=== PATIENT | female | born 1930 | race Caucasian/White ===

== ENCOUNTER 2017-07-24 18:03 | Emergency (ER) | payer MEDICARE ==
[2017-07-24 18:44] VITALS: BP 151/99
--- NOTE | 2017-07-24 19:15 | ED ---
Skin Complaint - HPI Summary HPI Summary: 87 yr old female with the complaint of tick on right anterior chest. Present for two days. The patient has noticed significant redness of about 2.5 inch diameter. No other complaints. No engorgement of tick. - History of Current Complaint Chief Complaint: UCSkin Time Seen by Provider: 07/24/17 19:00 Stated Complaint: TICK Hx Last Menstrual Period: N/A Pain Intensity: 0 - Allergy/Home Medications Allergies/Adverse Reactions: Allergies Allergy/AdvReac Type Severity Reaction Status Date / Time aspirin Allergy Severe swelling Verified 07/24/17 18:45 of face/lips/throat Home Medications: Home Medications Cephalexin CAP* [Keflex CAP*] 500 mg PO TID 07/24/17 [History Confirmed 07/24/17 ] Levothyroxine TAB* [Synthroid TAB*] 25 mcg PO 0800 07/24/17 [History Confirmed 07/24/17] PMH/Surg Hx/FS Hx/Imm Hx Previously Healthy: Yes Endocrine/Hematology History: Denies: Hx Diabetes, Hx Thyroid Disease Cardiovascular History: Reports: Hx Hypertension - taken off medication by PCP Respiratory History: Reports: Hx Asthma Denies: Hx Chronic Obstructive Pulmonary Disease (COPD) GI History: Denies: Hx Ulcer - Surgical History Surgery Procedure, Year, and Place: ablation. pacemaker Infectious Disease History: No Infectious Disease History: Denies: Traveled Outside the [place] in Last 30 Days - Family History Known Family History: Positive: None - Social History Occupation: Retired Lives: With Family Alcohol Use: Daily Alcohol Amount: 1 glass of wine Substance Use Type: Reports: None Smoking Status (MU): Former Smoker Review of Systems Constitutional: Negative Eyes: Negative Positive: Other - tick right anterior chest All Other Systems Reviewed And Are Negative: Yes Physical Exam Triage Information Reviewed: Yes Vital Signs On Initial Exam: Initial Vitals Temp Pulse Resp BP Pulse Ox 98.3 F 75 18 151/99 95 07/24/17 18:36 07/24/17 18:36 07/24/17 18:36 07/24/17 18:36 07/24/17 18:36 Vital Signs Reviewed: Yes Appearance: Positive: Well-Appearing, No Pain Distress Skin: Positive: Other - tick right anterior chest with 2.5 inch diameter or redness. Head/Face: Positive: Normal Head/Face Inspection Eyes: Positive: EOMI Neck: Positive: Nontender Respiratory/Lung Sounds: Positive: Clear to Auscultation, Breath Sounds Present Cardiovascular: Positive: RRR. Negative: Murmur Abdomen Description: Positive: Nontender. Negative: Distended Neurological: Positive: Sensory/Motor Intact, Alert, Oriented to Person Place, Time, CN Intact II-III Psychiatric: Positive: Normal - Reshma Coma Scale Best Eye Response: 4 - Spontaneous Best Motor Response: 6 - Obeys Commands Best Verbal Response: 5 - Oriented Coma Scale Total: 15 Diagnostics - Vital Signs Vital Signs Temp Pulse Resp BP Pulse Ox 07/24/17 18:36 98.3 F 75 18 151/99 95 - Laboratory Lab Statement: Any lab studies that have been ordered have been reviewed, and results considered in the medical decision making process. Course/Dx - Course Course Of Treatment: 87 yr old female with the complaint of tick. Tick removed. Rx with doxy 10 days due to the redness that is larger than just a localized reaction. - Diagnoses Provider Diagnoses: Tick bite of chest wall, Hypertension Discharge - Sign-Out/Discharge Documenting (check all that apply): Discharge/Admit/Transfer - Discharge Plan Condition: Good Disposition: HOME Prescriptions: DOXYcycline CAP(*) [DOXYcycline 100MG CAP(*)] 100 mg PO BID #20 cap Patient Education Materials: Lyme Disease (ED), Tick Bite (ED), Hypertension ( ED) Referrals: Cindy THOMPSON,Amos Proctor [Primary Care Provider] - 2 Days - Billing Disposition and Condition Condition: GOOD Disposition: HOME
== END 2017-07-24 19:17 | disposition home or self-care (01) ==
LOC: UCCORT 18:03
DX: S20.361A Insect bite (nonvenomous) of right front wall of thorax, initial encounter (principal); I10 Essential (primary) hypertension; J45.909 Unspecified asthma, uncomplicated; Z88.6 Allergy status to analgesic agent; Z87.891 Personal history of nicotine dependence; W57.XXXA Bitten or stung by nonvenomous insect and other nonvenomous arthropods, initial encounter
CPT/HCPCS: 99202; G0463